=== PATIENT | male | born 1945 | race Caucasian/White ===

== ENCOUNTER → 2018-05-28 | Outpatient (CLI) | payer OTHER, MEDICARE ==
--- NOTE | 2018-05-28 23:33 | RAD ---
Right upper extremity venous duplex study 05/28/2018 CLINICAL HISTORY: Right arm swelling. TECHNIQUE: Using a combination of real-time ultrasound imaging and color-flow and pulse Doppler imaging techniques, duplex evaluation of the major venous structures of the right upper extremity to include the right subclavian and right internal jugular veins was performed. Multiple images were obtained. FINDINGS: There is no sonographic evidence of venous thrombosis involving the visualized venous structures of the right upper extremity. IMPRESSION: Negative study. Electronically signed by: Rudy Rodarte MD (05/28/2018 11:30 PM) [facility]
--- NOTE | 2018-05-28 23:34 | RAD ---
Right lower extremity venous duplex study 05/28/2018 Clinical History: Right leg swelling. Technique: Using a combination of real time ultrasound imaging and color-flow and pulse Doppler imaging techniques along with graded compression and augmentation, duplex evaluation of the deep venous system of the right lower extremity was performed. Multiple images were obtained. Findings: There is no sonographic evidence of deep venous thrombosis involving the visualized deep venous structures of the right lower extremity. Impression: Negative study. Electronically signed by: Rudy Rodarte MD (05/28/2018 11:31 PM) [facility]
== END | disposition home or self-care (01) ==
LOC: US 22:10
PROVIDERS: ATTEND Nurse Anesthetist, Certified Registered
DX: M79.601 Pain in right arm (principal); M79.604 Pain in right leg
CPT/HCPCS: 93971